=== PATIENT | female | born 1980 | race Caucasian/White ===

== ENCOUNTER 2021-01-27 20:18 | Emergency (ER) | payer OTHER ==
[~2021-01-27 20:18] MED LIST: NAPROXEN500 MG PO; PRINIVIL20 MG PO
[2021-01-27 23:41] LABS: BASOPHIL 0.5 % (0-2); EOSINOPHIL 0.8 % (0-5); HCT 40.1 % (37.0-47.0); HGB 13.3 g/dl (12.5-16.0); LYMPHOCYTE 27.7 % (15-48); MCHC 33.2 g/dL (32.0-36.0); MCV 90.3 fL (78.0-100.0); MPV 9.7 fL (6.0-9.5); NEUTROPHIL 65.5 % (41-80); NRBC 0; PLT 286 K/uL (150-400); RBC 4.44 M/uL (4.20-5.40); RDW 12.6 % (11.5-14.0); WBC 11.7 K/uL (4.0-10.5)
[2021-01-27 23:57] LABS: CREATININE 0.69 mg/dL (0.51-0.95); POTASSIUM 3.9 mmol/L (3.5-5.1)
[2021-01-28] MEDS ORDERED: HCTZ25 MG PO (09:09)
[2021-01-28] MEDS ORDERED: ZOLOFT100 MG PO (09:10)
[2021-01-28] MEDS ORDERED: NORVASC5 MG PO (09:11)
[2021-01-28] MEDS ORDERED: BUPROPION XL150 MG PO (09:11)
[2021-01-28] MEDS ORDERED: ATARAX25 MG PO (09:12)
[2021-01-28] MEDS ORDERED: VALSARTAN160 MG PO (09:13)
[2021-01-28] MEDS ORDERED: VITAMIN D350 MC3 PO (09:13)
[2021-01-28] MEDS ORDERED: ZINC50 M1 PO (09:13)
== END 2021-01-28 11:37 | disposition home or self-care (01) ==
LOC: FER 20:18
PROVIDERS: Internal Medicine
DX: U07.1 COVID-19 (principal); J10.1 Influenza due to other identified influenza virus with other respiratory manifestations; I31.8 Other specified diseases of pericardium; I10 Essential (primary) hypertension; F17.210 Nicotine dependence, cigarettes, uncomplicated; J44.9 Chronic obstructive pulmonary disease, unspecified; Z79.899 Other long term (current) drug therapy
CPT/HCPCS: 36415; 71275; 80048; 84484; 85025; 85379; 93005; J2060; Q0245; Q9967